=== PATIENT | male | born 1980 | race Caucasian/White ===

== ENCOUNTER 2021-12-16 10:07 | Emergency (ER) | payer OTHER, SELFPAY ==
--- NOTE | ~2021-12-16 | XR_ITS ---
XR ankle LT min 3V DATE: 12/16/2021 10:22 INDICATION: Injury. Medial and lateral swelling. TECHNIQUE: 4 views COMPARISON: None FINDINGS: No fracture or dislocation is evident. No periosteal reaction or bone destruction. Plantar calcaneal enthesopathy. IMPRESSION: No fracture or dislocation of the ankle Plantar calcaneal enthesopathy Reviewed, dictated and finalized at location A.
[2021-12-16 10:10] VITALS: BP 155/90; PULSE 75; RESP 16; TEMP 36.7; O2SAT 100
--- NOTE | 2021-12-16 10:23 | ED.LOWEXIN ---
HPI - Extremity Injury (Lower) General Chief Complaint: Extremity Injury, Lower <ESTEPHANIE Brink Last Filed: 12/16/21 10:34> Stated Complaint: left Ankle Injury <ESTEPHANIE Brink Last Filed: 12/16/21 10:34> Time Seen by Provider: 12/16/21 10:09 <ESTEPHANIE Brink Last Filed: 12/16/21 10:34> Source: patient <ESTEPHANIE Brink Last Filed: 12/16/21 10:34> Mode of arrival: ambulatory (On crutches) <ESTEPHANIE Brink Last Filed: 12/16/21 10:34> Limitations: no limitations <ESTEPHANIE Brink Last Filed: 12/16/21 10:34> History of Present Illness HPI Narrative: This is a 40 year old male that presents to the ER for left ankle injury sustained just prior to arrival. Reports he twisted the ankle wrestling with his daughter. Reports pain and swelling in the left ankle. He took Tylenol just prior to arrival with some relief. Denies decreased ROM or numbness. <ESTEPHANIE Brink Last Filed: 12/16/21 10:34> Related Data Allergies/Adverse Reactions: Allergies Allergy/AdvReac Type Severity Reaction Status Date / Time No Known Allergies Allergy Verified 12/16/21 10:12 <ESTEPHANIE Brink Last Filed: 12/16/21 10:34> Review of Systems Review of Systems: CONSTITUTIONAL: Denies fever MUSCULOSKELETAL: Reports joint pain, and myalgia. NEUROLOGIC: Denies numbness <ESTEPHANIE Brink Last Filed: 12/16/21 10:34> All systems reviewed & are unremarkable except as noted in HPI and below <ESTEPHANIE Brink Last Filed: 12/16/21 10:34> [facility] Past Medical History Medical History: Medical History (Updated 12/17/21 @ 00:00 by Background [place]) No active medical problems <ESTEPHANIE Brink Last Filed: 12/16/21 10:34> Social History Social History: Social History (Updated 12/16/21 @ 10:25 by Kait Lin PA-C) Smoking status: Never smoker <Kait Lin PA-C - Last Filed: 12/16/21 10:34> Exam Narrative: GENERAL: Well-appearing, well-nourished, and in no acute distress. HEAD: Normocephalic, atraumatic. EYES: EOMI. EXTREMITIES: Normal range of motion. Mild edema about the left medial malleoli. Normal DP pulses. Normal sensation SKIN: Warm, dry, no rash. NEURO: No focal deficits. Alert and oriented x3. PSYCH: Normal mood and affect <Kait Lin PA-C - Last Filed: 12/16/21 10:34> Course INSTALLMENT LOAN COLLECTOR/PA Physician Supervision For this patient encounter, I reviewed the INSTALLMENT LOAN COLLECTOR or PA documentation, treatment plan, and medical decision making <Kane Burk MD - Last Filed: 12/17/21 09:38> Vital Signs Vital signs: Vital Signs Temperature 98.1 F 12/16/21 10:10 Pulse Rate 75 12/16/21 10:10 Respiratory Rate 16 12/16/21 10:10 Blood Pressure 155/90 H 12/16/21 10:10 Pulse Oximetry 100 12/16/21 10:10 Temperature 98.1 F 12/16/21 10:10 Pulse Rate 64 12/16/21 10:38 Respiratory Rate 18 12/16/21 10:38 Blood Pressure 130/84 12/16/21 10:38 Pulse Oximetry 98 12/16/21 10:38 <Kait Lin PA-C - Last Filed: 12/16/21 10:34> Vital Signs Temperature 98.1 F 12/16/21 10:10 Pulse Rate 75 12/16/21 10:10 Respiratory Rate 16 12/16/21 10:10 Blood Pressure 155/90 H 12/16/21 10:10 Pulse Oximetry 100 12/16/21 10:10 Temperature 98.1 F 12/16/21 10:10 Pulse Rate 64 12/16/21 10:38 Respiratory Rate 18 12/16/21 10:38 Blood Pressure 130/84 12/16/21 10:38 Pulse Oximetry 98 12/16/21 10:38 <Kane Burk MD - Last Filed: 12/17/21 09:38> MDM - Extremity Injury (Lower) MDM Narrative Medical decision making narrative: Patient presents to the emergency department for left ankle pain after an injury just prior to arrival. Patient is neurovascularly intact. Ankle x-ray without acute osseous abnormalities. Patient placed in Denis wrap. He had crutches from home. Instructed on care of ankle sprain. He is to follow-up with his primar
[2021-12-16] MEDS: IBUPROFEN 400 MG TABLET 800 MG PO (10:25)
[2021-12-16 10:38] VITALS: BP 130/84; PULSE 64; RESP 18; O2SAT 98
== END 2021-12-16 10:47 | disposition home or self-care (01) ==
LOC: ANHED 10:43
PROVIDERS: Emergency Provider Emergency Medicine
DX: S93.402A Sprain of unspecified ligament of left ankle, initial encounter (principal); S96.912A Strain of unspecified muscle and tendon at ankle and foot level, left foot, initial encounter; X50.1XXA Overexertion from prolonged static or awkward postures, initial encounter
CPT/HCPCS: 73610; 99283; A9270

== ENCOUNTER 2022-11-28 10:32 | Emergency (ER) | payer OTHER, SELFPAY ==
--- NOTE | ~2022-11-28 | XR_ITS ---
EXAMINATION: XR chest 2V 11/28/2022 11:31 INDICATION: Wheezing and cough PROCEDURE: 2 view chest COMPARISON: No prior studies for comparison. FINDINGS: The lungs are clear. The cardiomediastinal silhouette is within normal limits. There are no pleural effusions. There is no pneumothorax suspected. IMPRESSION: 1: NO ACUTE CARDIOPULMONARY DISEASE. Reviewed, dictated and finalized at location L.
[2022-11-28 10:42] VITALS: BP 126/83; PULSE 54; RESP 16; TEMP 36.6; O2SAT 98
--- NOTE | 2022-11-28 10:59 | ED.URI ---
HPI - URI/Sore Throat General Chief Complaint: Upper Respiratory Infection Stated Complaint: WHEEZING Time Seen by Provider: 11/28/22 11:00 Source: patient Mode of arrival: ambulatory Limitations: no limitations History of Present Illness HPI Narrative: 41-year-old male presented for complaint of cough for 10 days. Endorses wheezing with deep breaths for the past few days. Also endorses associated sinus congestion, body aches and fatigue. He states symptoms are improving overall. States he felt shortness of breath and fatigue yesterday while out for his run; wheezing also heard when laying flat. Denies sob/wheezing at rest. He denies chest pain, palpitations, nausea, vomiting, diarrhea, fevers or chills. Taking OTC meds for symptoms. Related Data Allergies Allergy/AdvReac Type Severity Reaction Status Date / Time No Known Allergies Allergy Verified 11/28/22 10:47 Review of Systems Review of Systems: CONSTITUTIONAL: Denies fever, chills, or sweats. EYES: Denies visual changes, redness, or discharge. ENT: Denies rhinorrhea, congestion, sore throat, or otalgia. CARDIOVASCULAR: Denies chest pain, palpitations, or edema. RESPIRATORY: Reports cough, sob with exertion, wheezing. GASTROINTESTINAL: Denies abdominal pain, nausea, vomiting, or diarrhea. SKIN: Denies rash, itching, or wounds. MUSCULOSKELETAL: Denies back pain, joint pain, or myalgia. NEUROLOGIC: Denies headache, numbness, tingling, or weakness. All systems reviewed & are unremarkable except as noted in HPI and below PMFSH Past Medical History Medical History No active medical problems Social History Social History Smoking status: Never smoker Comments At time of signature, I have reviewed and agree with nursing past medical, surgical, social and family history unless otherwise noted. Please see nursing chart for further information. There is no relevant family history pertinent to the presenting complaint Exam Narrative: GENERAL: Well-appearing, in no acute distress. EYES: EOMI. No redness or drainage. Conjunctivae normal. ENT: Mucous membranes pink and moist. No rhinorrhea. TMs normal bilaterally. Throat normal. Uvula midline. NECK: Normal AROM. Supple. CHEST: No respiratory distress. Wheezing to Left upper and mid lung [place]. HEART: Regular rate and rhythm. No murmur appreciated. ABDOMEN: Soft, nontender, nondistended, normal active bowel sounds. EXTREMITIES: Normal range of motion. No edema. SKIN: Warm, dry, no rash. Capillary refill normal. Normal skin turgor. NEURO: Alert and oriented x3. Gait steady. PSYCH: Normal affect. Course Course Emergency Course: Patient is aware of diagnosis, understands and agrees to treatment plan. Anticipatory guidance given. Patient agrees to follow-up as directed and is aware of reasons to seek care at the emergency department. Portions of this record may have been created with voice recognition software Level of Care: Express Care Visit Vital Signs Vital signs: Vital Signs Temperature 98 F 11/28/22 10:42 Pulse Rate 54 L 11/28/22 10:42 Respiratory Rate 16 11/28/22 10:42 Blood Pressure 126/83 11/28/22 10:42 Pulse Oximetry 98 11/28/22 10:42 Temperature 98 F 11/28/22 10:42 Pulse Rate 54 L 11/28/22 10:42 Respiratory Rate 16 11/28/22 10:42 Blood Pressure 126/83 11/28/22 10:42 Pulse Oximetry 98 11/28/22 10:42 MDM - URI/Sore Throat MDM Narrative Medical decision making narrative: Results of chest x-ray reviewed with patient. Advised supportive measures and signs/symptoms to go to the ER. Pt is appropriate for outpt treatment and f/u. Differential Diagnosis Differential diagnosis: Likely upper respiratory infection, sinusitis, viral infection, bronchitis and other (pneumonia, chf, pneumothorax) Imaging Data Radiologist's impression: Patient: Megan
== END 2022-11-28 12:06 | disposition home or self-care (01) ==
PROVIDERS: Emergency Provider Nurse Practitioner Family
DX: J06.9 Acute upper respiratory infection, unspecified (principal)
CPT/HCPCS: 71046; 99213; G0463

== ENCOUNTER 2023-02-10 08:59 | Outpatient (CLI) | payer OTHER, SELFPAY ==
--- NOTE | ~2023-02-10 | XR_ITS ---
AP, oblique, and lateral views of the left great toe CLINICAL HISTORY: Pain FINDINGS: No fracture or dislocation seen. Osseous alignment is unremarkable. Joint spaces are preser ari. There is minimal spurring at the first MTP joint. Soft tissues are unremarkable. IMPRESSION: Minimal degenerative spurring at the first MTP joint. Reviewed, dictated and finalized at [facility].
[2023-02-10 09:38] LABS: Basophils Absolute Auto 0.1 K/mm3 (0.0-0.1); Basophils Percent Auto 0.9 % (0.2-1.2); Eosinophils Absolute Auto 0.2 K/mm3 (0-0.3); Eosinophils Percent Auto 3.2 % (0-4.4); Hematocrit 43.6 % (42.0-52.0); Hemoglobin 14.5 g/dL (14.0-18.0); Immature Granulocyte Absolute 0.01 K/mm3 (0.00-0.031); Immature Granulocyte Percent A 0.2 % (0-0.5); Lymphocytes Absolute Auto 2.64 K/mm3 (0.9-3.2); Lymphocytes Percent Auto 49.1 % (18.3-44.2); Mean Corpuscular HGB Conc 33.3 g/dl (32-36); Mean Corpuscular Volume 93.2 fl (80-100); Mean Platelet Volume 9.5 fl (7.4-10.4); Monocytes Absolute Auto 0.5 K/mm3 (0.1-0.6); Monocytes Percent Auto 9.5 % (2.6-8.5); Neutrophils Percent Auto 37.1 % (45.5-73.1); Platelet Count Result 204 k/mm3 (150-375); Red Blood Count 4.68 M/mm3 (4.6-6.20); Red Cell Distribution Width 12.1 % (11.5-14.5); White Blood Count 5.4 K/mm3 (4.5-10.0)
[2023-02-10 09:50] LABS: Alanine Aminotransferase 47 U/L (6-50); Albumin Level 4.4 g/dL (3.5-5.1); Alkaline Phosphatase 58 U/L (38-126); Anion Gap 3 mmol/L (8-16); Aspartate Amino Transferase 36 U/L (17-59); Bilirubin,Total 1.2 mg/dL (0.2-1.3); Blood Urea Nitrogen 13 mg/dL (9-20); Calcium 9.1 mg/dL (8.4-10.2); Carbon Dioxide 29 mmol/L (22-30); Chloride 105 mmol/L (98-107); Cholesterol 214 mg/dL (0-200); Estimated Glomerular Filt Rate > 60; Glucose 109 mg/dL (65-110); HDL Direct 57 mg/dL; Potassium 4.4 mmol/L (3.4-5.0); Sodium 137 mmol/L (137-145); Triglycerides 157 mg/dL (<150)
[2023-02-10 10:02] LABS: LDL Cholesterol Direct 125 mg/dL
== END 2023-02-10 09:00 | disposition home or self-care (01) ==
PROVIDERS: PCP Family Medicine; Visit Provider Family Medicine
DX: M79.676 Pain in unspecified toe(s) (principal)
CPT/HCPCS: 36415; 73660; 80053; 80061; 85025

== ENCOUNTER 2023-08-21 07:58 | Outpatient (CLI) | payer OTHER, SELFPAY ==
[2023-08-21 08:47] LABS: Basophils Percent Auto 0.5 % (0.2-1.2); Eosinophils Absolute Auto 0.2 K/mm3 (0-0.3); Eosinophils Percent Auto 2.7 % (0-4.4); Hematocrit 47.5 % (42.0-52.0); Hemoglobin 15.5 g/dL (14.0-18.0); Immature Granulocyte Absolute 0.01 K/mm3 (0.00-0.031); Immature Granulocyte Percent A 0.2 % (0-0.5); Lymphocytes Absolute Auto 2.95 K/mm3 (0.9-3.2); Mean Corpuscular HGB Conc 32.6 g/dl (32-36); Mean Corpuscular Hemoglobin 30.8 pg (26-34); Mean Corpuscular Volume 94.2 fl (80-100); Mean Platelet Volume 9.6 fl (7.4-10.4); Monocytes Absolute Auto 0.8 K/mm3 (0.1-0.6); Neutrophils Absolute Auto 2.1 K/mm3 (1.3-6.7); Neutrophils Percent Auto 34.6 % (45.5-73.1); Platelet Count Result 237 k/mm3 (150-375); Red Blood Count 5.04 M/mm3 (4.6-6.20); Red Cell Distribution Width 12.5 % (11.5-14.5)
[2023-08-21 09:08] LABS: Alanine Aminotransferase 69 U/L (6-50); Albumin Level 4.5 g/dL (3.5-5.1); Alkaline Phosphatase 59 U/L (38-126); Anion Gap 10 mmol/L (8-16); Aspartate Amino Transferase 48 U/L (17-59); Bilirubin,Total 1.7 mg/dL (0.2-1.3); Blood Urea Nitrogen 14 mg/dL (9-20); Calcium 9.6 mg/dL (8.4-10.2); Carbon Dioxide 26 mmol/L (22-30); Chloride 101 mmol/L (98-107); Cholesterol 260 mg/dL (0-200); Estimated Glomerular Filt Rate > 60; Glucose 106 mg/dL (65-110); HDL Direct 53 mg/dL; Potassium 4.3 mmol/L (3.4-5.0); Sodium 137 mmol/L (137-145); Triglycerides 175 mg/dL (<150)
[2023-08-21 09:19] LABS: LDL Cholesterol Direct 150 mg/dL
== END 2023-08-21 07:59 | disposition home or self-care (01) ==
LOC: ANHLAB 08:00
PROVIDERS: PCP Family Medicine; Visit Provider Family Medicine
DX: Z30.09 Encounter for other general counseling and advice on contraception (principal); M72.2 Plantar fascial fibromatosis
CPT/HCPCS: 36415; 80053; 80061; 85025

== ENCOUNTER 2023-11-20 09:59 | Emergency (ER) | payer OTHER, SELFPAY ==
--- NOTE | ~2023-11-20 | XR_ITS ---
XR chest 2V DATE: 11/20/2023 10:47 INDICATION: Cough, chills, dyspnea on exertion. Fevers. TECHNIQUE: 2 views COMPARISON: November 28, 2022 two-view chest is not currently available from PACS FINDINGS: Normal heart size. No hilar or mediastinal enlargement. No pulmonary infiltrate or consolid ation, pleural effusion or pulmonary vascular congestion or pneumothorax is detected. Included skeletal structures are unremarkable. IMPRESSION: No active cardiopulmonary disease Reviewed, dictated and finalized at location B.
--- NOTE | 2023-11-20 10:15 | ED.URI ---
HPI - URI/Sore Throat General Chief Complaint: Upper Respiratory Infection Stated Complaint: Fever/Chills Time Seen by Provider: 11/20/23 10:18 Source: patient, RN notes reviewed and old records reviewed Mode of arrival: ambulatory Limitations: no limitations History of Present Illness HPI Narrative: 42-year-old male who presents to [facility] with complaints of 1 week duration with cough and congestion, some dyspnea with exertion, fatigue, with chills, sweats, fevers, and body aches for the past 3 days. Patient reports that he is concerned for pneumonia he has had productive cough of yellowish tinged mucous. Patient reports that he has been taking Tylenol and Robitussin for his symptoms. Patient reports that he called his and she states that he had COVID booster and flu shot in May. MD elicited complaint: fever, cough, rhinorrhea, nasal congestion and other (chills, IGLESIAS) Pertinent past history: pneumonia Onset (ago): week(s) (ncreased symptoms for past 3 dys) Pain scale (0-10): 3 Able to tolerate fluids by mouth: Yes Treatments prior to arrival: acetaminophen and other (Robittussin) Related Data Allergies Allergy/AdvReac Type Severity Reaction Status Date / Time No Known Allergies Allergy Verified 11/20/23 10:09 Review of Systems Review of Systems: CONSTITUTIONAL: Reports malaise, chills, sweats,and fever.reports fatigue EYES: Denies visual changes, redness, or discharge. ENT: Reports rhinorrhea, congestion,no sinus pain, no otalgia and no sore throat. CARDIOVASCULAR: Denies chest pain, palpitations, or edema. RESPIRATORY: Reports cough.? Reports dyspnea with exertion GASTROINTESTINAL: Denies abdominal pain, nausea, vomiting, diarrhea SKIN: Denies rash or itching. MUSCULOSKELETAL: Denies myalgia. NEUROLOGIC: Denies headache. All systems reviewed & are unremarkable except as noted in HPI and below PMFSH Past Medical History Medical History (Updated 11/20/23 @ 11:28 by Lesley Mandujano NP) No active medical problems Surgical History Surgical History (Updated 11/20/23 @ 19:56 by Lesley Mandujano NP) S/P wisdom tooth extraction Social History Social History Smoking status: Never smoker Alcohol intake: current Alcohol use details: 1 or 2 week Substance use: never Lack of Transportation: No Lack of Food: Never True Current Housing: I Have Housing Concerned About Future Housing: No Difficulty Paying Gas/Electric Bills: No Difficulty Paying for Meds: No Currently Unemployed: No Education: Bachelor's Degree Difficulty w/ Childcare or Family Care: No Living arrangements: with family Occupation/Education: occupation Gender identity (if verbalized by the patient): Male Sexual Orientation (if Verbalized by the Patient): Straight or Heterosexual Comments At time of signature, agree with nursing past medical, surgical, social and family history. There is no relevant family history pertinent to the presenting complaint Exam Narrative: GENERAL: Ill appearing, well-nourished, and in no acute distress. HEAD: Normocephalic EYES: PERRLA, conjunctivae clear ENT: Nares clear, turbinates edematous and erythematous, yellow discharge. Mucous membranes moist. TM pearly oconnor with dull light reflex bilaterally; no tragal tenderness. Oropharynx erythematous without lesions. Tonsils not enlarged and without exudate, no drooling, no hoarseness, no trismus, uvula midline.post nasal discharge. NECK: Supple. No lymphadenopathy CHEST: Clear to auscultation, breath sounds equal. No wheezing, rhonchi, rales, or stridor. No respiratory distress, speaks in full sentences.cough noted is worse at night SAO2 95% on room air HEART: Regular rate and rhythm. No murmur heard. SKIN: Warm, dry, no rash. NEURO: Alert and oriented x3. PSYCH: Normal mood and affect Course Course Emergency Course: Patient is a
[2023-11-20 10:18] VITALS: BP 128/84; PULSE 75; RESP 16; TEMP 36.6; O2SAT 95
== END 2023-11-20 11:37 | disposition home or self-care (01) ==
PROVIDERS: Emergency Provider Registered Nurse; PCP Family Medicine
DX: J06.9 Acute upper respiratory infection, unspecified (principal); R05.9 Cough, unspecified; Z20.822 Contact with and (suspected) exposure to COVID-19
CPT/HCPCS: 71046; 87426; 87804; 99213; G0463

== ENCOUNTER 2024-03-07 12:35 | Emergency (ER) | payer OTHER, SELFPAY ==
[2024-03-07 12:49] VITALS: BP 134/76; PULSE 72; RESP 16; TEMP 37; O2SAT 97
--- NOTE | 2024-03-07 12:54 | ED.SKABFB ---
HPI - Skin/Abscess/Foreign Bdy General Chief complaint: Skin/Abscess/Foreign Body Stated complaint: poison susan Time Seen by Provider: 03/07/24 12:55 History of Present Illness HPI narrative: patient presents with complaints of extensive itchy rash to face, trunk, bilateral arms, bilateral legs. He states rash has been present for couple of days, it is spreading rapidly. He reports that he was doing yd work a day or 2 before it started. He denies any other allergic symptoms. No wheezing, no shortness of breath. He has been using topical preparations with no relief Related Data Allergies Allergy/AdvReac Type Severity Reaction Status Date / Time No Known Allergies Allergy Verified 03/07/24 12:51 Review of Systems Review of Systems: All systems reviewed & are unremarkable except as noted in HPI and below Constitutional: Constitutional: Reports no additional constitutional complaints ENT: Reports system reviewed and no additional complaints, except as documented Cardiovascular: Cardiovascular: Reports no additional cardiovascular complaints Respiratory: Respiratory: Reports no additional respiratory complaints Gastrointestinal: Gastrointestinal: Reports no additional gastrointestinal complaints Integumentary/Breasts: Skin/Breast: Reports as per HPI, Reports pruritus and Reports rash [facility] Past Medical History Medical History (Updated 03/07/24 @ 13:04 by Emily Noriega APRN) No active medical problems Surgical History Surgical History S/P wisdom tooth extraction Social History Social History Smoking status: Never smoker Alcohol intake: current Alcohol use details: 1 or 2 week Substance use: never Lack of Transportation: No Lack of Food: Never True Current Housing: I Have Housing Concerned About Future Housing: No Difficulty Paying Gas/Electric Bills: No Difficulty Paying for Meds: No Currently Unemployed: No Education: Bachelor's Degree Difficulty w/ Childcare or Family Care: No Living arrangements: with family Occupation/Education: occupation Gender identity (if verbalized by the patient): Male Sexual Orientation (if Verbalized by the Patient): Straight or Heterosexual Exam Const: General: cooperative, no acute distress, alert and awake Orientation/consciousness: oriented to person, oriented to place and oriented to time HENMT: Head: normal to inspection Resp: Effort & Inspection: normal respiratory effort and able to speak in complete sentences Auscultation: clear to auscultation bilaterally, no crackles, no rales, no rhonchi and no wheezes Cardio: Palpation: normal PMI Rate: regular rate Rhythm: regular rhythm Heart sounds: S1 normal heart sound present and S2 normal heart sound present Skin: Other: rash consistent with allergic contact dermatitis is present to the face, sparing the eyes, the trunk, bilateral arms and bilateral anterior thighs. No sign of secondary bacterial infection Neuro: General: oriented to person, oriented to place and oriented to time Cranial nerves: Yes CN's II-XII intact bilaterally Psych: Appearance: grossly normal Thought process: Normal thought process present Insight: Good insight present (Psych) Judgement: Good judgement present (Psych) Course Course Level of Care: Express Care Visit Vital Signs Vital signs: Vital Signs Temperature 98.6 F 03/07/24 12:49 Pulse Rate 72 03/07/24 12:49 Respiratory Rate 16 03/07/24 12:49 Blood Pressure 134/76 03/07/24 12:49 Pulse Oximetry 97 03/07/24 12:49 Temperature 98.6 F 03/07/24 12:49 Pulse Rate 72 03/07/24 12:49 Respiratory Rate 16 03/07/24 12:49 Blood Pressure 134/76 03/07/24 12:49 Pulse Oximetry 97 03/07/24 12:49 Discharge Plan Discharge Clinical Impression: Contact dermatitis due to poison susan Patient Dispositi
== END 2024-03-07 13:09 | disposition home or self-care (01) ==
PROVIDERS: Emergency Provider Nurse Practitioner Family; PCP Family Medicine
DX: L23.7 Allergic contact dermatitis due to plants, except food (principal)
CPT/HCPCS: 99213; G0463

== ENCOUNTER 2024-10-22 08:36 | Emergency (ER) | payer OTHER, SELFPAY ==
[2024-10-22 09:11] VITALS: BP 147/82; PULSE 75; RESP 16; TEMP 36.9; O2SAT 97
--- NOTE | 2024-10-22 09:53 | ED_ITS ---
HPI - URI/Sore Throat General Chief Complaint: Upper Respiratory Infection Stated Complaint: FEVER/HEADACHE Source: patient and RN notes reviewed Mode of arrival: ambulatory Limitations: no limitations History of Present Illness HPI Narrative: 43-year-old male presented for headache, body aches, sinus pressure/congestion, cough, fever/chills. onset 5 days. 5/6 family members have similar symptoms. Taking Tylenol, ibuprofen and NyQuil. Denies sob, wheezing, n/v/d. MD elicited complaint: cough Related Data Home Medications ?Medication ?Instructions ?Recorded ?Confirmed ?Last Taken ?Type No Home Medications 10/22/24 10/22/24 Unknown History Allergies Allergy/AdvReac Type Severity Reaction Status Date / Time No Known Allergies Allergy Verified 10/22/24 09:08 Review of Systems Review of Systems: CONSTITUTIONAL: Endorses malaise, chills, sweats, fever EYES: Denies visual changes, redness, or discharge ENT: Reports rhinorrhea, congestion, sinus pain, sore throat CARDIOVASCULAR: Denies chest pain, palpitations, edema RESPIRATORY: Reports cough, post nasal drainage. Denies dyspnea GASTROINTESTINAL: Denies abdominal pain, nausea, vomiting, diarrhea MUSCULOSKELETAL: Endorses myalgia PMFSH Past Medical History Medical History No active medical problems Surgical History Surgical History S/P wisdom tooth extraction Social History Social History Smoking status: Never smoker Alcohol intake: current Alcohol use details: 1 or 2 week Substance use: never Lack of Transportation: No Lack of Food: Never True Current Housing: I Have Housing Concerned About Future Housing: No Difficulty Paying Gas/Electric Bills: No Difficulty Paying for Meds: No Currently Unemployed: No Education: Bachelor's Degree Difficulty w/ Childcare or Family Care: No Living arrangements: with family Occupation/Education: occupation Gender identity (if verbalized by the patient): Male Sexual Orientation (if Verbalized by the Patient): Straight or Heterosexual Exam Narrative: GENERAL: mildly ill-appearing, nontoxic EYES: PERRLA, conjunctivae clear ENT: Mucous membranes moist. TM pearly oconnor with dull light reflex bilaterally; no tragal tenderness. Oropharynx erythematous without lesions or exudate, no drooling, no hoarseness, no trismus, uvula midline. No tripod positioning, muffled voice, soft palate or pharyngeal wall bulging NECK: Supple. No lymphadenopathy CHEST: Clear to auscultation, breath sounds equal. HEART: Regular rate and rhythm. SKIN: Warm, dry, no rash. NEURO: Alert and oriented x3. PSYCH: Normal mood and affect Course Course Emergency Course: Patient is aware of diagnosis, understands and agrees to treatment plan. Anticipatory guidance given. Patient agrees to follow-up as directed and is aware of reasons to seek care at the emergency department. Portions of this record may have been created with voice recognition software Level of Care: Express Care Visit Vital Signs Vital signs: Vital Signs Temperature 98.5 F 10/22/24 09:11 Pulse Rate 75 10/22/24 09:11 Respiratory Rate 16 10/22/24 09:11 Blood Pressure 147/82 H 10/22/24 09:11 Pulse Oximetry 97 10/22/24 09:11 Temperature 98.5 F 10/22/24 09:11 Pulse Rate 75 10/22/24 09:11 Respiratory Rate 16 10/22/24 09:11 Blood Pressure 147/82 H 10/22/24 09:11 Pulse Oximetry 97 10/22/24 09:11 reviewed MDM - URI/Sore Throat MDM Narrative Medical decision making narrative: Negative flu and COVID. Results reviewed with patient, son tested pos for influenza. Discussed physical exam findings. Advised supportive measures and s igns/symptoms to go to the ER. Pt is appropriate for outpt treatment and f/u. Differential Diagnosis Differential diagnosis: Likely upper respiratory infection, sinusitis and viral infection Discharge Plan Discharge Clinical Impression: Viral infection Patient Disposition: Home, Self-Care Condition: Stable Instructions: Influenza (ED) Additional Instructions: You should avoid crowds until you are fever free for 24 hours without the use of fever reducing medications, or the symptoms are improved Rest. Drink plenty of fluids. Tylenol 1000mg every 8 hours as needed for pain/fever Flonase spray and Zyrtec (or Claritin/Brenda) for sinus pressure/congestion over the counter Cough syrup may cause drowsiness; avoid driving or take it at night time. Follow up with your primary care provider as needed Go to the ER for worsening symptoms or concerns Patient Language: Occitan Prescriptions: No Action No Home Medications Follow-up/Referrals: Joel Najera MD [Primary Care Provider] -
[2024-10-22 09:58] LABS: EDCOVIDSCREEN Negative (Negative); EDINFLUASCREEN Negative (Negative); EDINFLUBSCREEN Negative (Negative)
== END 2024-10-22 10:00 | disposition home or self-care (01) ==
PROVIDERS: Emergency Provider Nurse Practitioner Family; PCP Family Medicine
DX: B34.9 Viral infection, unspecified (principal); Z20.822 Contact with and (suspected) exposure to COVID-19
CPT/HCPCS: 87426; 87804; 99212; G0463